=== PATIENT | male | born 1940 | race Caucasian/White ===

== ENCOUNTER 2017-03-14 06:09 | Day surgery (SDC) | payer MEDICARE, BC ==
[~2017-03-14 06:09] MED LIST: Buffered Lidocaine 0.9% SYRIN* 5 ML/SYR SYRINGE INTRADERM ONE; Buffered Lidocaine 0.9% SYRIN* 5 ML/SYR SYRINGE ONE; Dexamethasone IV* 4 MG/ML 1 ML (4 MG) IV SLOW PU ONE; Dexamethasone IV* 4 MG/ML 1 ML (4 MG) ONE; Famotidine IV* 10 MG/ML 2 ML (20 mg) IV ONE; Famotidine IV* 10 MG/ML 2 ML (20 mg) ONE; ceFAZolin 2 GM PREMIX(*) 2 GM/50 ML BAG IVPB ONE
[2017-03-14] MEDS ORDERED: Methylene Blue 0.5 %* 50 MG/10 ML AMP IV ONE (07:15)
[2017-03-14] MEDS ORDERED: Mineral Oil Sterile, TOPICAL* 25 ML BTL ONE (07:16)
[2017-03-14] MEDS ORDERED: Bupivacaine 0.25% EPI 200,000* 30 ML SDV ONE (07:16)
[2017-03-14] MEDS ORDERED: Lidocaine 1% MPF wEPI 200,000* 30 ML SDV ONE (07:17)
[2017-03-14] MEDS ORDERED: fentaNYL* 50 MCG/ML 2 ML VIAL (100 MCG VIAL) ONE (07:32)
[2017-03-14] MEDS ORDERED: Midazolam* 1 MG/ML 5 ML VIAL (5 MG) ONE (07:32)
[2017-03-14] MEDS ORDERED: Ondansetron INJ* 2 MG/ML VIAL ONE (07:35)
[2017-03-14] MEDS ORDERED: Propofol* 10 MG/ML 20 ML BTL IV PUSH ONE (07:35)
[2017-03-14 10:23] VITALS: BP 138/88
== END 2017-03-14 10:24 | disposition home or self-care (01) ==
LOC: OR 06:09
PROVIDERS: ATTEND Plastic Surgery
PROC: 0HB0XZZ Excision of Scalp Skin, External Approach (ICD-10-PCS; principal; 2017-03-14 07:45)
DX: C44.42 Squamous cell carcinoma of skin of scalp and neck (principal); I10 Essential (primary) hypertension; I48.91 Unspecified atrial fibrillation; Z79.01 Long term (current) use of anticoagulants; Z95.0 Presence of cardiac pacemaker; I25.10 Atherosclerotic heart disease of native coronary artery without angina pectoris; E11.9 Type 2 diabetes mellitus without complications; Z79.84 Long term (current) use of oral hypoglycemic drugs
CPT/HCPCS: 88305; 88329; A9270-GY; J0690; J1100; J2001; J2250; J2405; J2704; J3010

== ENCOUNTER 2019-03-23 10:25 | Inpatient (IN) | payer MEDICARE, BC ==
--- NOTE | 2019-03-23 11:06 | ED ---
Lower Extremity - HPI Summary HPI Summary: This patient is a 78 year old M presenting to ED with a chief complaint of drainage from right lower extremity in the past few days worsening this morning. The drainage is clear and bloody. Patient is accompanied by his daughter who states that he has been confused and hallucinating, which is not how the patient is at baseline. Patient has been going in and out of confusion for a while now, but it has worsened and been persistent this past week. Patient does not usually walk around a lot but he takes care of his chickens. Patient usually sleeps in the morning, but per daughter he was awake early in the morning today. The patient rates the pain 0/10 in severity. Symptoms aggravated by nothing. Symptoms alleviated by nothing. Patient reports coughing that has stopped, erythematous in the lower extremities bilaterally, confusion, hallucinations. Patient denies fever. PMHx of CHF, HTN, DM. PSHx of pacemaker. - History of Current Complaint Chief Complaint: EDExtremityLower Stated Complaint: "SWELLING IN LEGS PER DAUGHTER" Time Seen by Provider: 03/23/19 10:56 Hx Obtained From: Patient, Family/Stave And Bolt Equalizer - Daughter Onset/Duration: Worse Since - Beginning a few days ago, worsening since Severity Initially: Mild Severity Currently: Moderate Pain Intensity: 0 Pain Scale Used: 0-10 Numeric Timing: Lasting Days Location: Other - Bilateral lower extremities Associated Signs And Symptoms: Positive: Redness, Other - Drainage, confusion, hallucations, cough. Negative: Fever Aggravating Factor(s): Nothing Alleviating Factor(s): Nothing - Allergies/Home Medications Allergies/Adverse Reactions: Allergies Allergy/AdvReac Type Severity Reaction Status Date / Time No Known Allergies Allergy Verified 03/14/17 06:40 PMH/Surg Hx/FS Hx/Imm Hx Previously Healthy: No Endocrine/Hematology History: Reports: Hx Diabetes Cardiovascular History: Reports: Hx Congestive Heart Failure, Hx Hypertension, Hx Pacemaker/ICD - [facility] - NO MRIs - NOT MR CONDITIONAL FOR [facility], Other Cardiovascular Problems/Disorders - CHRONIC A-FIB Respiratory History: Reports: Hx Sleep Apnea History: Reports: Hx Kidney Stones Denies: Hx Dialysis, Hx Renal Disease Musculoskeletal History: Reports: Hx Arthritis Sensory History: Reports: Hx Contacts or Glasses Denies: Hx Hearing Aid Opthamlomology History: Reports: Hx Contacts or Glasses Psychiatric History: Denies: Hx Panic Disorder - Surgical History Surgery Procedure, Year, and Place: [facility] - NO MRIs @ [facility] [place] - NOT MR CONDITIONAL. kidney stones,total hip replacements, Hx Anesthesia Reactions: No Infectious Disease History: No Infectious Disease History: Denies: Traveled Outside the [place] in Last 30 Days - Family History Known Family History: Positive: Other - Dementia, hyperglycemia - Social History Alcohol Use: None Hx Substance Use: No Substance Use Type: Reports: None Hx Tobacco Use: No Smoking Status (MU): Never Smoked Tobacco Review of Systems Negative: Fever Positive: Cough Skin: Other - Erythematous and draining ulcers on bilateral lower extremities Neurological: Other - Confusion, hallucinations All Other Systems Reviewed And Are Negative: Yes Physical Exam - Summary Physical Exam Summary: Appearance: Well appearing, no pain distress Skin: bilaterally pitting edema in lower extremities, multiple ulcers with discharge and erythematous bilateral LE Head/face: normal Eyes: EOMI, SALUD ENT: normal Neck: supple, non-tender Respiratory: CTA, breath sounds present Cardiovascular: RRR, pulses symmetrical Abdomen: non-tender, soft Musculoskeletal: normal, strength/ROM intact Neuro: alert and confused GCS: 15 Triage Information Reviewed: Yes Vital Signs On Initial Exam: Initial Vitals Temp Pulse Resp BP Pulse Ox 98.9 F 74 18 84/60 92 03/23/19 10:45 03/23/19 10:45 03/23/19 10:45 03/23/19 10:45 03/23/19 10:45 Vital Signs Reviewed: Yes Diagnostics - Vital Signs Vital Signs Temp Pulse Resp BP Pulse Ox 03/23/19 10:45 98.9 F 74 18 84/60 92 - Laboratory Result Diagrams: 03/23/19 11:35 03/23/19 11:35 Lab Statement: Any lab studies that have been ordered have been reviewed, and results considered in the medical decision making process. - Radiology CXR Radiology Interpretation Completed By: Radiologist Summary of Radiographic Findings: CARDIOMEGALY. PACEMAKER LEADS IN PLACE. NO PNEUMONIA. Dr. Henderson has reviewed this radiology report. - CT Brain CT Interpretation Completed By: Radiologist Summary of CT Findings: No intracranial mass or hemorrhage is noted. Dr. Henderson has reviewed this radiology report. - EKG 1123 Cardiac Rate: NL - 70 BPM Summary of EKG Findings: Paced rhythm at 70 BPM, no acute changes. Lower Extremity Course/Dx - Course Course Of Treatment: This patient is a 78 year old M presenting to ED with a chief complaint of drainage from right lower extremity in the past few days worsening this morning. In the ED course patient received fluids, Vancomycin, and Zosyn. Blood work obtained. EKG revealed paced rhythm at 70 BPM, no acute changes. CXR revealed CARDIOMEGALY. PACEMAKER LEADS IN PLACE. NO PNEUMONIA. Brain CT revealed: No intracranial mass or hemorrhage is noted. Discussed patient case with Dr. lOivares hospitalist, who accepted the patient for admission to [facility] [place]. Patient will be admitted with dx of sepsis and cellulitis. Patient understands and agrees with this plan. - Diagnoses Differential Diagnosis/HQI/PQRI: Positive: Cellulitis, DVT, Infection, Other - sepsis Provider Diagnoses: Sepsis, Cellulitis, Hypotension - Physician Notifications Discussed Care Of Patient With: Bear Olivares Time Discussed With Above Provider: 12:56 Instructed by Provider To: Admit As Inpatient - Discussed patient case with katrina Morenoist, who accepted the patient for admission to [facility] [place]. - Critical Care Time Critical Care Time: 30-74 min - 30 minutes Discharge - Sign-Out/Discharge Documenting (check all that apply): Patient Departure - Admit Patient Received Moderate/Deep Sedation with Procedure: No - Discharge Plan Condition: Fair Disposition: ADMITTED TO [facility] Referrals: Can Cartagena MD [Primary Care Provider] - - Billing Disposition and Condition Condition: FAIR Disposition: Admitted to [facility] - Attestation Statements Document Initiated by Vincentibe: Yes Documenting Scribe: Caleb Rivera Provider For Whom Moriah is Documenting (Include Credential): José Manuel Henderson MD Scribe Attestation: Caleb Busch, scribed for José Manuel Henderson MD on 03/23/19 at 1404. Scribe Documentation Reviewed: Yes Provider Attestation: The documentation as recorded by the Caleb bills accurately reflects the service I personally performed and the decisions made by , José Manuel Henderson MD Status of Scribe Document: Viewed
[2019-03-23] MEDS ORDERED: NS 0.9% 1000 ML** 1,000 ML IV.FLUID IV ONE (11:09)
[2019-03-23] MEDS ORDERED: Piperacillin/Tazobac ADVAN(*) 3.375 GM in NS 0.9% 100 ML* 100 ML IVPB ONE (11:09)
[2019-03-23] MEDS ORDERED: Vancomycin(*) 2,000 MG in NS 0.9% 250 ML* 250 ML IVPB ONE (11:12)
[2019-03-23] MEDS ORDERED: Vancomycin(*) 2,000 MG in NS 0.9% 500 ML* 500 ML IVPB ONE (12:00)
[2019-03-23 12:04] LABS: Hematocrit 45 % (42-52); Hemoglobin 14.8 g/dL (14.0-18.0); Mean Corpuscular HGB Conc 33 g/dL (31-36); Mean Corpuscular Hemoglobin 32 pg (27-31); Mean Corpuscular Volume 98 fL (80-94); Red Blood Count 4.61 10^6 /uL (4.18-5.48); Red Cell Distribution Width 15 % (10-15); White Blood Count 10.6 10^3/uL (3.5-10.8)
[2019-03-23 12:19] LABS: Activated Partial Thrombo Time 80.9 seconds (26.0-38.0); INR 2.83 (0.82-1.09)
[2019-03-23 12:20] LABS: Albumin 3.1 g/dL (3.2-5.2); Albumin/Globulin Ratio 1.2 (1-3); BUN/Creatinine Ratio 22.2 (8-20); C Reactive Protein 90.65 mg/L (<8.01); EGFR African American 44.5 (>60); EGFR Non-African American 36.8 (>60); Globulin 2.5 g/dL (2-4); Total Bilirubin 1.9 mg/dL (0.2-1.0); Total Protein 5.6 g/dL (6.4-8.9)
[2019-03-23 12:21] LABS: Troponin I 0.02 ng/mL (<0.04)
[2019-03-23 12:31] LABS: ABS Lymphocytes 0.3 10^3/ul (1.0-4.8); ABS Neutrophils 9.3 10^3/ul (1.5-7.7); Eosinophil % 0.2 %; Lymphocyte % 3.1 %; Mean Platelet Volume 9.8 fL (7.4-10.4); Platelet Count 83 10^3/uL (150-450)
[2019-03-23] MEDS ORDERED: Acetaminophen TAB* 325 MG PO PRN (14:04)
[2019-03-23] MEDS ORDERED: Vancomycin per Pharmacy* NOTE FOLLOW UP PRN (14:46)
[2019-03-23] MEDS ORDERED: Vancomycin(*) 0 MG in NS 0.9% 250 ML* 250 ML IVPB SCH (15:00)
[2019-03-23] MEDS: metroNIDAZOLE IV 500 MG/100ML* 500 MG/100 ML BAG IVPB SCH (15:39)
[2019-03-23 15:41] LABS: Urine Appearance Cloudy; Urine Bacteria Absent (Absent); Urine Bilirubin Negative (Negative); Urine Blood Negative (Negative); Urine Color Yellow; Urine Glucose Negative (Negative); Urine Ketones Negative (Negative); Urine Nitrite Negative (Negative); Urine Protein 1+(30 mg/dL) (Negative); Urine Red Blood Cell Trace(0-2/hpf) (Absent); Urine Specific Gravity 1.013 (1.010-1.030); Urine Squamous Epithelial Cell Present (Absent); Urine Urobilinogen Negative (Negative); Urine White Blood Cell Trace(0-5/hpf) (Absent)
[2019-03-23] MEDS ORDERED: Dextrose 50% Syringe 50 ML* 25 GM/50 ML SYRINGE IV PUSH PRN (15:53)
[2019-03-23] MEDS: Cefepime 1 GM in Dextrose(*) 1 GM/50 ML BAG IV SCH (16:46)
[2019-03-23] MEDS: Insulin LISPRO* 1 UNITS UNIT SUBCUT SCH (17:15)
[2019-03-23] MEDS ORDERED: Atorvastatin* 20 MG TAB PO SCH (18:00)
--- NOTE | 2019-03-23 19:35 | HP ---
CC: Dr. Cartagena.* HISTORY AND PHYSICAL: DATE OF ADMISSION: 03/23/19 PROVIDER: Lela Chow NP. PRIMARY CARE PROVIDER: Dr. Cartagena. ATTENDING PHYSICIAN WHILE IN THE HOSPITAL: Dr. Bear Olivares * (dictated by Lela Chow NP) CHIEF COMPLAINT: Lower extremity swelling and drainage bilaterally. HISTORY OF PRESENT ILLNESS: Mr. Jane is a 78-year-old male with a past medical history of obstructive sleep apnea wearing CPAP, atrial fibrillation, history of cardiomyopathy, history of Vtach, type 2 diabetes, hyperlipidemia, obesity, hypertension, BPH, history of coronary artery disease. The patient reports that he has had increased weakness in his legs for the past 2 to 3 weeks. He reports that he has had some lower extremity weeping and drainage bilaterally, increased swelling for the past month and daughter reports that the swelling, lower extremity edema, redness and drainage has progressively worsened for the past week. She does report that he had bloody drainage that started yesterday. She also reports that the patient has had increased confusion and that the patient at baseline has confusion and has been confused for approximately 1 year and started with some hallucinations approximately 2 weeks ago, but has been worse times the past 4 days. The patient reports that he has had increased swelling in his abdomen x2 months with weight gain. He reports that his normal weight is 310, but is unsure what his weight is at this time. Daughter reports that he has had changes in his sleep pattern over the past 4 days and usually sleeps most of the day and sleeps in the morning, but this morning he was awake at 5 o'clock and was outside. The daughter reports no changes in his speech, no changes in his gait status at home. She does report that he was recently seen by a neurologist 2 to 3 weeks ago and evaluated for his increased confusion. At that time, they ordered a CT, which was scheduled for 03/25/19. No fevers or unintended weight loss. The patient denies any chest pain. He does report increased edema to bilateral lower extremities and does report occasional cough that has improved over the past 2 to 3 weeks. Denies any hemoptysis. He does report some shortness of breath. Denies any nausea, vomiting, diarrhea or abdominal pain. Last BM was last night. Denies any gross hematuria or dysuria. He does report generalized weakness, bilateral legs. Denies any visual complaints, dysphagia, arthralgias, myalgias. He does have weeping ulcerations noted to his right lower leg and the top of his right foot as well as his left lower leg with redness extending from his ankle on the medial aspect of his leg to his thigh with increased redness to bilateral lower extremities. No anxiety was reported. There was reported increased confusion and hallucinations at home. Due to his increased confusion and lower extremity redness, swelling and drainage, we were asked to see and evaluate him for admission. PAST MEDICAL HISTORY: Significant for: 1. Obstructive sleep apnea, wear CPAP at night. 2. Atrial fibrillation. 3. History of cardiomyopathy with ICD pacemaker. 4. Hypertension. 5. History of Vtach. 6. Type 2 diabetes. 7. Hyperlipidemia. 8. Obesity. 9. BPH. 10. History of coronary artery disease with history of a AL. 11. History of squamous cell carcinoma - skin PAST SURGICAL HISTORY: 1. He had bilateral hip replacements. 2. [facility] ICD pacemaker placement. 3. Surgery for kidney stones. HOME MEDICATIONS: (verified with patient supplied medication list) 1. Pradaxa 150 mg 1 tablet b.i.d. 2. Dutasteride 0.5 mg 1 tab p.o. daily. 3. Metoprolol 100 mg p.o. b.i.d. 4. Januvia 100 mg p.o. daily. 5. Amiodarone 200 mg half tablet to 1 tab p.o. daily. 6. Lisinopril 5 mg p.o. daily. 7. Allopurinol 1 mg p.o. daily. 8. Atorvastatin 20 mg p.o. daily. 9. Tamsulosin 0.4 mg 1 tab p.o. daily. 10. Furosemide 20 mg 1 tab p.o. daily. (Daughter is going to clarify dose as dose in the computer reads at 40mg). ALLERGIES: No known drug allergies. FAMILY HISTORY: Mother with a history of heart disease. Brother with a AL in his 50s, mother with a history of diabetes. No reported history of cancer. SOCIAL HISTORY: The patient denies any tobacco, alcohol or illicit drug use. 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 He is . He lives with his daughter. He is a full code. Surrogate decision maker in the event he is unable to make his own decisions is his daughter, Joselyn. REVIEW OF SYSTEMS: A 14-point review of systems was completed. All pertinent positives were mentioned in the HPI. PHYSICAL EXAMINATION GENERAL: At this time, Mr. Jane is a 78-year-old male. He is drowsy resting on the stretcher in the emergency room. He does not appear to be in any acute distress. He is alert and oriented x3. HEENT: Head with multiple scabbed areas noted to his face and top of his head. Eyes: EOMs are intact. Sclerae anicteric and not pale. Oral mucosa appeared to be moist. NECK: Supple. LUNGS: Diminished throughout bilaterally with crackles in the right base. CARDIAC: S1, S2. Irregular rate and rhythm. No rubs or gallops. ABDOMEN: Obese, rounded, soft. Bowel sounds are present x4. MUSCULOSKELETAL: He is able to move all 4 extremities. There is no clubbing or cyanosis. He does have redness discoloration noted to bilateral lower extremities with open ulceration noted to the top of his right foot and medial aspect of the right ankle and lower leg with open ulcerations that are weeping serosanguineous drainage. He does have some serosanguineous drainage noted from his left lower extremity with surrounding erythema. He does have erythema noted to the medial aspect of his right leg extending up to his thigh. NEUROLOGIC: He is awake but drowsy. He is alert and oriented x3. There is no gross focal deficits. Hand auto claims adjuster are equal. Smile is equal. Tongue is midline. There is no facial asymmetry. Finger to nose is intact. Push pull is intact. NO pronator drift. Sensation is intact to all four extremities. SKIN: Please see extremities. He does have open ulcerations noted to the medial aspect of bilateral lower legs and the top of his right foot. Wound cultures have been sent. DIAGNOSTIC STUDIES/LAB DATA: WBCs are 10.6, RBCs are 4.61, hemoglobin 14.8, hematocrit is 45, platelet count is 83,000. INR is 2.83. APTT is 80.9. Sodium 139, potassium 4.0, chloride 103, carbon dioxide is 33, anion gap is 3, BUN is 40, creatinine 1.80, glucose is 190, lactic acid is 2.3. Total bilirubin is 1.90. AST is 23, ALT is 16, alkaline phosphatase is 63. Troponin 0.02, C-reactive protein is 19.65, BNP is 563. Urine: Color is yellow. Appearance is cloudy. pH is 5.0, specific gravity is 1.013, urine protein is 1 + ketones, blood, nitrites, bilirubin, urobilinogen and leukocyte esterase are all negative. Urine wbc's are trace, rbc's are trace, squamous epithelial cells are present. Bacteria is absent. Hyaline casts are present. Glucose is negative. He had a chest x-ray. Radiologist impression: Cardiomegaly. Pacemaker leads in place. No evidence of pneumonia. He had a CT of the brain. No intracranial mass or hemorrhage is noted. He had a venous Doppler. No evidence of deep vein thrombosis of either lower extremity is present. Left peroneal veins are not visualized. He had an electrocardiogram, which showed ventricular paced complexes with underlying atrial fibrillation at a rate of 70. ASSESSMENT AND PLAN: Mr. Jane is a 78-year-old male with a past medical history significant for obstructive sleep apnea, atrial fibrillation, cardiomyopathy, hypertension, history of ventricular tachycardia, type 2 diabetes, hyperlipidemia, obesity, benign prostatic hypertrophy, history of coronary artery disease with myocardial infarction and history of squamous cell skin cancer to the head, who presented to the emergency room with increased confusion and increased drainage and redness to the lower extremities. He will be admitted inpatient for: 1. Altered mental status: I suspect this altered mental status could be related to toxic metabolic encephalopathy related to sepsis from underlying cellulitis. This patient does appear to have underlying cellulitis. The patient does have baseline confusion for over a year, has been evaluated by Neurology as an outpatient, but no definitive diagnosis. The patient does not have any focal neuro deficits at this time. His speech is clear, but the patient is drowsy. His tongue is midline. Smile is equal. Handgrips are equal. There is no pronator drift. Within the differential could be cerebrovascular accident but this is low given that the patient does not have any neurological findings. CT of the brain did not show any evidence of infarct. We will rule out a cerebrovascular accident. We will get carotid duplex. I would recommend a MRI if his confusion does not improve. We will also get an echocardiogram with bubble study. The patient currently is on Pradaxa. We will continue his Pradaxa and statin as previously prescribed. I will get a hemoglobin A1c and lipid profile in the a.m. 2. Cellulitis. The patient is meeting sepsis criteria for cellulitis. He has an elevated lactic acid at 2.3. He is hypotensive in the emergency room. He may not exhibit tachycardia due to being on rate control agents of amiodarone and metoprolol. The patient does have tachypnea, which will qualify him for sepsis with suspected source lower extremity cellulitis. He did receive 30 cc/ kg bolus in the emergency room. His blood pressure does improve to the low 100s. I am going to hold his lisinopril. I will cut his metoprolol in half to 50 mg p.o. b.i.d. once starting in the a.m. I am going to hold his Lasix until his blood pressure improves. We will place him on Flagyl, vancomycin and cefepime. His wound cultures are currently pending. Blood culture is currently pending. 3. Anasarca, lower extremity edema. He does have 2+-3+ pitting edema noted from his abdomen to his ankles bilaterally. I suspect this is increasing his drainage to his lower extremities. At this time, I will hold off on Lasix as the patient does meet criteria for sepsis and is hypotensive, but it does appear that he would benefit from Lasix once his sepsis is resolved. i am going to hold off on further fluid at this time as the patient has received almost 5 liters of fluid in the ER. 4. Elevated lactic acid. I suspect this is related to his underlying cellulitis of bilateral lower extremities, right leg worse than left. We will repeat a lactic acid at 3:30 today and continue fluid replacement based on that. The patient does appear to have some fluid overload with +2 to +3 pitting edema from his abdomen to his ankle. I am going to hold on further fluid replacement at this time. 5. Thrombocytopenia. The patient does take Pradaxa for underlying atrial fibrillation. His platelet count is 83,000 which is lower than his normal baseline. I will repeat a CBC in the a.m. We will monitor him for signs of bleeding. I will continue his Pradaxa at this time and monitor for any acute signs of bleeding. If his platelet count continues to drop may need to consider hold Pradaxa. Drop in platelets can also be seen in with infection. 6. Hypertension. He is currently hypotensive, suspect this could be related to his underlying infection in combination of his current blood pressure medications. I am going to cut his metoprolol in half to 50 mg p.o. BID. I am going to hold his lisinopril and Lasix at this time. 7. Atrial fibrillation. The patient does have an ICD pacer. We will continue his amiodarone 100 mg p.o. daily starting tomorrow and cut metoprolol in half to 50 mg p.o. BID. We will continue his Pradaxa. 8. Hyperlipidemia. He will continue on atorvastatin 20 mg p.o. daily. 9. Benign prostatic hypertrophy. The patient will continue Flomax 0.4 mg 1 tablet p.o. daily. 10. Type 2 diabetes. I will hold his Januvia. I will place him on lispro sliding scale with fingersticks a.c. and h.s. and sliding scale with a.c. 11. Elevated BUN/ Creatinine. This is elevated slightly above baseline, will hold lisinopril and avoid nephrotoxic medications. Will repeat BMP in the AM. IF BUN and creatinine continue to elevated may need to consider renal ultrasound. 12. Code status is full code. 13. DVT prophylaxis: We will continue him on Pradaxa. 14. FEN: He can have a heart healthy diet. TIME SPENT: Time spent on this admission was 60 minutes, greater than half that time was spent at the bedside reviewing events leading thus far to his hospitalization, performing physical exam, and reviewing my plan of care. I have discussed this with my attending, Dr. Bear Olivares; he is in agreement with my plan. LELA MACHO, HR OPERATIONS ADVISOR [id number]/CPS #: [id number] [facility]
[2019-03-23] MEDS: CMCS Dabigatran CAP(NF) 150 MG CAP PO SCH (21:19)
[2019-03-24] MEDS: metroNIDAZOLE IV 500 MG/100ML* 500 MG/100 ML BAG IVPB SCH ×2 (02:22→14:29)
[2019-03-24] MEDS ORDERED: Haloperidol INJ IV/IM* 5 MG/ML AMP ONE (02:56)
[2019-03-24] MEDS ORDERED: Haloperidol INJ IV/IM* 5 MG/ML AMP IV SLOW PU ONE (02:57)
[2019-03-24] MEDS: Cefepime 1 GM in Dextrose(*) 1 GM/50 ML BAG IV SCH ×2 (05:35→17:00)
[2019-03-24] MEDS ORDERED: Vancomycin Random Level* NOTE FOLLOW UP ONE (06:00)
[2019-03-24 07:10] LABS: ABS Lymphocytes 0.5 10^3/ul (1.0-4.8); ABS Monocytes 1.2 10^3/ul (0-0.8); ABS Neutrophils 10.4 10^3/ul (1.5-7.7); Eosinophil % 0.3 %; Hematocrit 44 % (42-52); Hemoglobin 14.9 g/dL (14.0-18.0); Lymphocyte % 4.4 %; Mean Corpuscular HGB Conc 34 g/dL (31-36); Mean Corpuscular Hemoglobin 33 pg (27-31); Mean Corpuscular Volume 98 fL (80-94); Platelet Count 72 10^3/uL (150-450); Red Blood Count 4.48 10^6 /uL (4.18-5.48); Red Cell Distribution Width 16 % (10-15); White Blood Count 12.1 10^3/uL (3.5-10.8)
[2019-03-24 07:30] LABS: Calcium 8.9 mg/dL (8.6-10.3); EGFR African American 48.5 (>60); EGFR Non-African American 40.1 (>60); HDL Cholesterol 33.2 mg/dL; Potassium 4.5 mmol/L (3.5-5.0)
[2019-03-24 07:46] LABS: Vancomycin Random 9.6 mcg/mL
[2019-03-24] MEDS ORDERED: Metoprolol Tartrate TAB* 50 mg PO SCH (09:00)
[2019-03-24] MEDS ORDERED: Vancomycin(*) 1,000 MG in NS 0.9% 250 ML* 250 ML IVPB SCH (09:00)
[2019-03-24] MEDS: Insulin LISPRO* 1 UNITS UNIT SUBCUT SCH ×2 (09:14→12:28)
[2019-03-24] MEDS: Finasteride TAB* 5 MG PO SCH (09:15)
[2019-03-24] MEDS: Allopurinol TAB* 100 MG PO SCH (09:15)
[2019-03-24] MEDS: CMCS Dabigatran CAP(NF) 150 MG CAP PO SCH ×2 (09:15→21:38)
[2019-03-24] MEDS: Tamsulosin CAP* 0.4 MG PO SCH (09:15)
--- NOTE | 2019-03-24 09:55 | PN ---
Subjective Date of Service: 03/24/19 Interval History: Pt was intermittently confused throughout the night. This AM as per d/w RN pt was more alert when eating, now drifting off to sleep in mid sentence, mumbling intermittently. Pt thinks he is on his porch. Denies pain, unable to provide any medical history Objective Active Medications: Acetaminophen (Tylenol Tab*) 650 mg PO Q4H PRN PRN Reason: FEVER/PAIN Allopurinol (Zyloprim Tab*) 100 mg PO DAILY [facility] Last Admin: 03/24/19 09:15 Dose: 100 mg Atorvastatin Calcium (Lipitor*) 20 mg PO BEDTIME [facility] Dabigatran (Pradaxa Cap(Nf)) 150 mg PO BID [facility] Last Admin: 03/24/19 09:15 Dose: 150 mg Dextrose (D50w Syringe 50 Ml*) 12.5 gm IV PUSH .FOR FS < 60 - SS PRN PRN Reason: FS < 60 Finasteride (Proscar Tab*) 5 mg PO DAILY [facility]; Protocol Last Admin: 03/24/19 09:15 Dose: 5 mg Cefepime HCl (Maxipime 1 Gm In Dextrose Duplex (*)) 1 gm in 50 mls @ 100 mls/ hr IV Q12H [facility] Last Admin: 03/24/19 05:35 Dose: 100 mls/hr Metronidazole/Sodium Chloride (Flagyl 500 Mg Ivpb*) 500 mg in 100 mls @ 100 mls /hr IVPB Q12H [facility] Last Admin: 03/24/19 02:22 Dose: 100 mls/hr Vancomycin HCl 1,000 mg/ (Sodium Chloride) 250 mls @ 166.667 mls/hr IVPB Q12H [facility] Insulin Human Lispro (Humalog*) 0 units SUBCUT AC [facility]; Protocol Last Admin: 03/24/19 09:14 Dose: 2 units Metoprolol Tartrate (Lopressor Tab*) 50 mg PO Q12HR [facility] Pharmacy Consult (Vancomycin Per Pharmacy*) 1 note FOLLOW UP . PRN PRN Reason: PER PROTOCOL Pharmacy Profile Note (Vancomycin Trough Check) 1 note FOLLOW UP 829 ONE Stop: 03/25/19 08:31 Tamsulosin HCl (Flomax Cap*) 0.4 mg PO DAILY [facility] Last Admin: 03/24/19 09:15 Dose: 0.4 mg Vital Signs - 8 hr 03/24/19 03/24/19 03/24/19 02:00 02:01 02:21 Temperature Pulse Rate 68 65 64 Respiratory 0 0 26 Rate Blood Pressure 76/52 78/51 98/51 (mmHg) O2 Sat by Pulse 91 90 91 Oximetry 03/24/19 03/24/19 03/24/19 02:30 03:00 03:02 Temperature Pulse Rate 77 75 73 Respiratory 20 24 27 Rate Blood Pressure 106/65 98/54 (mmHg) O2 Sat by Pulse 89 99 97 Oximetry 03/24/19 03/24/19 03/24/19 03:10 03:24 03:30 Temperature 97.0 F Pulse Rate 70 75 Respiratory 20 20 Rate Blood Pressure 110/67 97/54 (mmHg) O2 Sat by Pulse 93 93 Oximetry 03/24/19 03/24/19 03/24/19 04:00 04:02 04:30 Temperature Pulse Rate 65 73 Respiratory 37 23 16 Rate Blood Pressure 87/67 97/60 (mmHg) O2 Sat by Pulse 96 93 Oximetry 03/24/19 03/24/19 03/24/19 05:00 05:30 06:00 Temperature Pulse Rate 73 74 Respiratory 30 21 20 Rate Blood Pressure 97/57 91/58 111/69 (mmHg) O2 Sat by Pulse 95 91 Oximetry 03/24/19 03/24/19 03/24/19 06:30 06:43 07:00 Temperature Pulse Rate Respiratory 14 7 6 Rate Blood Pressure 111/64 102/61 (mmHg) O2 Sat by Pulse Oximetry 03/24/19 03/24/19 03/24/19 07:24 07:30 07:33 Temperature 97.2 F Pulse Rate 73 71 Respiratory 22 25 Rate Blood Pressure 89/52 (mmHg) O2 Sat by Pulse 97 97 Oximetry 03/24/19 08:00 Temperature Pulse Rate 73 Respiratory 27 Rate Blood Pressure (mmHg) O2 Sat by Pulse 87 Oximetry Oxygen Devices in Use Now: Nasal Cannula Appearance: 78 yo M in [facility], AAOx1 Eyes: No Scleral Icterus, PERRLA Ears/Nose/Mouth/Throat: NL Teeth, Lips, Gums, Mucous Membranes Moist Neck: NL Appearance and Movements; NL JVP, Trachea Midline Respiratory: - - crackles at b/l lowerto mid lungs Cardiovascular: NL Sounds; No Murmurs; No JVD, RRR Abdominal: - - distended, soft, NT BS+ Lymphatic: No Cervical Adenopathy Extremities: - - b/l diffuse pitting edema. R leg with erythema and elements of chronic appearing venous stasis disoloration with acute cellulitic appearing area blow the knee, also chronic appearing erythema medial thigh, R lateral aspect-distal leg-ecchymosis at 20x10 cm Skin: No Nodules or Sclerosis, - - see above Neurological: - - generalized weakness, no focal deficit Result Diagrams: 03/24/19 06:34 03/24/19 06:34 Microbiology and Other Data: Microbiology 03/23/19 14:30 Nasal Screen MRSA (PCR) - Final Nasal Mrsa Not Detected 03/23/19 11:10 Skin and Soft Tissue MRSA/MSSA (PCR - Final Leg Right Mrsa Negative S.aureus Positive Gram Stain - Final Assess/Plan/Problems-Billing Assessment: 78 yo M with mild dementia, RYAN (on CPAP), PAF (on Pradaxa), DM2, CKD stage 3, ICD (h/o V. tach and cardiomyopathy) presents with sepsis due to LE 's cellulitis - Patient Problems (1) Sepsis Comment: severe sepsis,with oscylating SBP, occasionally SBP at 89, but no other signs of hypoperfusion and lactic acid WNL after IVF boluses. No need of pressor . cont Cefepime/Flagyl for LE's cellultitis. Wound cx is MRSA neg and will d/c Vanc (2) Atrial fibrillation Comment: h/o PAF on Pradaxa, currently in NSR will cont lopressor with hold parameters cont amiodarone due to pt's thrombocytopenia and amidoarone use as well as increased creat will lower Pradaxa does to 75 mg BID (3) Encephalopathy Comment: Acute due to sepsis, on chronic mild dementia (4) CKD (chronic kidney disease) stage 3, GFR 30-59 ml/min Comment: creat with mild worsening this hospital stay due to sepsis (5) Thrombocytopenia Comment: likely due to sepsis no signis of bleeding cont Pradaxa (lower the dose due to CKD with worsening, amiodarone use and thrombocytopenia), no heparin (6) CHF (congestive heart failure) Comment: chornic with cardiomypathy and ICD, unknown EF Echo pending will restart home Lasix tomorrow (7) RYAN (obstructive sleep apnea) Comment: current mentation may be worse due to CO2 retention will get ABG, may need BIPAP again (8) DVT prophylaxis Comment: cont Pradaxa Status and Disposition: inpatient
[2019-03-24] MEDS ORDERED: Perflutren Lipid Microsphere* 3 ML VIAL ONE (10:03)
--- NOTE | 2019-03-24 13:32 | ECHO ---
*[facility]* [place] [address] Fax #: [phone] Transthoracic Echocardiogram Patient: Jason Jane : 1940 Study Date: 03/24/2019 Age: 78 Gender: M HR: 107 bpm Height: 68 in /172.7 cm BSA: 2.46 m^2 Weight: 309.4 lb /140.6 kg BMI: 47.1 kg/m^2 *Warehouse Receiver: * Traci Pritchett [facility] *Referring Physician: * Lela Chow *Reading Physician: * Bernard Gandhi MD Indications: Edema. History: Atrial fibrillation. PMH: Cardiomyopathy. Risk factors: Current tobacco use. Diabetes mellitus. Obese. Dyslipidemia. Labs, prior tests, procedures, and surgery: ICD system implantation. Conclusions Summary: 1. Procedure narrative: Image quality was poor. Intravenous Definity , 3 mls was administered but did not improve quality of imaging. A bubble study was performed. But was non- diagnostic due to poor imaging and lack of adequate bubbles. 2. Left ventricle: The cavity size is at the upper limits of normal. Wall thickness is mildly increased. Systolic function is normal. The estimated ejection fraction is 50-55%. TDS and the endocardium is not well visualized. 3. Right ventricle: Pacer wire noted in the right ventricle. 4. Left atrium: The left atrium appears dilated. 5. Right atrium: The right atrium appears dilated. 6. Tricuspid valve: There is trace regurgitation. 7. C/t 06/14/2009, there is significant left ventricle ejection fraction improvement now from 20% then. Study data: Transthoracic echocardiogram. Procedure: Transthoracic echocardiography was performed. Image quality was poor. Intravenous Definity , 3 mls was administered but did not improve quality of imaging. A bubble study was performed. But was non- diagnostic due to poor imaging and lack of adequate bubbles. Image enhancement administered by MINNA Buckley (patient's nurse). Complete 2D, spectral Doppler, and color flow Doppler. Location: ICU Patient status: Inpatient. Patient room number: 2. Rhythm: Atrial fibrillation. Findings Left ventricle: The cavity size is at the upper limits of normal. Wall thickness is mildly increased. Systolic function is normal. The estimated ejection fraction is 50-55%. Wall motion appears normal; there are no obvious regional wall motion abnormalities. TDS and the endocardium is not well visualized. Left ventricular diastolic function parameters are indeterminate. Right ventricle: The cavity size is moderately dilated. Pacer wire noted in the right ventricle. Systolic function is normal. Ventricular septum: There is septal flattening of the interventricular septum consistent with RV volume or pressure overload. Left atrium: The left atrium appears dilated. Right atrium: The right atrium appears dilated. Pacer wire noted in right atrium. Mitral valve: The leaflets are mildly thickened. There is no evidence of stenosis. There is no significant regurgitation. Aortic valve: Not well visualized. The leaflets do not appear thickened. There is no significant regurgitation. Tricuspid valve: Not well visualized. The leaflets do not appear thickened. There is trace regurgitation. Pulmonic valve: Not well visualized. There is no significant regurgitation. Aorta: Aortic root: The aortic root is appears normal. Ascending aorta: The ascending aorta is appears normal. Aortic arch: The aortic arch is poorly visualized. Pericardium: A trivial pericardial effusion is identified. Pulmonary arteries: Not well visualized. Systolic pressure is within the normal range but is likely underestimated. Systemic veins: Inferior vena cava: Not well visualized. Measurements Left ventricle Value Ref Mitral valve Value Ref JANELLE, LAX 5.5 cm 4.2 - 5.8 Peak E 0.6 m/sec ----- ESD, LAX (H) 4.7 cm 2.5 - 4.0 Peak A 0.03 m/sec ----- FS, LAX (L) 14 % 25 - 43 Decel time 112 ms ----- PW, ED, LAX (H) 1.2 cm 0.6 - 1.0 Peak E/A ratio 24 ----- EF (L) 30 % 52 - 72 E', med karly, TDI 9.6 cm/sec >=7.0 Pulmonic valve Value Ref E/e', med karly, TDI 6 --------- Peak v, S 0.89 m/sec ----- Peak grad, S 3.0 mm Hg ----- LVOT Value Ref Peak roma, S 0.76 m/sec --------- Tricuspid valve Value Ref TR peak v 2.1 m/sec <=2.8 Ventricular septum Value Ref Peak RV-RA grad, S 18 mm Hg ----- IVS, ED 1.0 cm 0.6 - 1.0 Aortic root Value Ref Right ventricle Value Ref Root diam 3.2 cm <4.5 JANELLE, LAX 5.2 cm --------- Pressure, S 33 mm Hg --------- Ascending aorta Value Ref AAo AP diam, S 2.5 cm ----- Right atrium Value Ref Estimated RAP 15 mm Hg --------- Pulmonary artery Value Ref Pressure, S 30.0 mm Hg ----- Aortic valve Value Ref Karly diam, ED 2.3 cm --------- Peak v, S 1 m/sec --------- Peak grad, S 4.0 mm Hg --------- Legend: (L) and (H) doe values outside specified reference range. Prepared and electronically signed by Bernard Gandhi MD 03/24/2019 13:31
[2019-03-24] MEDS ORDERED: Lorazepam PYXIS KEY PRN (13:37)
--- NOTE | 2019-03-24 13:47 | PN ---
Progress Note - Progress Note Date of Service: 03/24/19 Note: Pt's ABG showed rep acidosis and did not improve, but got slightly worse after BIPAP x 1.5 hr Pt also has gotten increasingly more lethargic/obtunded. discussed the above with Erica Sumeet-pt's stepdaughter and surrogate. Maryellen mentioned how pt used to tend to his chickens up to a week ago and that he would not wish to "end up in a penitentiary". She also was aware of his problems with memory and confusion that had progressed in the past several weeks. We discussed options of ventilator and sedation while on it and likely NH placement if pt survives his ICU stay. Erica mentioned that pt would not want to live in a NH and requested for pt to be not intubated. DNR was signed. Comfort care was requested and initiated
[2019-03-24] MEDS: Amiodarone TAB* 200 MG PO SCH (14:12)
[2019-03-24] MEDS: Morphine ORAL CONCENTRATE* 5 MG/0.25 ML ORAL.SYRIN SL PRN (14:13)
[2019-03-24] MEDS ORDERED: Atorvastatin* 20 MG TAB PO SCH (21:00)
[2019-03-24] MEDS: Metoprolol Tartrate TAB* 50 mg PO SCH (21:38)
[2019-03-25] MEDS: LORazepam INJ* 2 MG/ML 1 ML VIAL IV PUSH PRN ×5 (01:31→18:01)
[2019-03-25] MEDS: metroNIDAZOLE IV 500 MG/100ML* 500 MG/100 ML BAG IVPB SCH ×2 (03:18→14:37)
[2019-03-25] MEDS: Cefepime 1 GM in Dextrose(*) 1 GM/50 ML BAG IV SCH ×2 (04:33→16:24)
[2019-03-25] MEDS: Morphine ORAL CONCENTRATE* 5 MG/0.25 ML ORAL.SYRIN SL PRN ×5 (07:06→18:00)
[2019-03-25] MEDS ORDERED: Vancomycin Trough Check NOTE FOLLOW UP ONE (08:30)
[2019-03-25 08:50] VITALS: BP 79/45
[2019-03-25] MEDS: Amiodarone TAB* 200 MG PO SCH (08:50)
[2019-03-25] MEDS: Metoprolol Tartrate TAB* 50 mg PO SCH (08:50)
[2019-03-25] MEDS: CMCS Dabigatran CAP(NF) 150 MG CAP PO SCH (08:50)
[2019-03-25] MEDS: Allopurinol TAB* 100 MG PO SCH (08:50)
[2019-03-25] MEDS: Finasteride TAB* 5 MG PO SCH (08:50)
[2019-03-25] MEDS: Tamsulosin CAP* 0.4 MG PO SCH (08:51)
[2019-03-25] MEDS ORDERED: Furosemide TAB* 40 MG PO SCH (09:00)
[2019-03-25] MEDS: Atropine 1% (ORAL/SL)* 15 ML BTL SL PRN ×3 (10:58→16:30)
--- NOTE | 2019-03-25 14:08 | PN ---
Subjective Date of Service: 03/25/19 Interval History: Pt is nonverbal. As d/w RN very congested and trying to cough up phlegm. Eyes closed and not opening them to command . Withdraws to pain Objective Active Medications: Acetaminophen (Tylenol Tab*) 650 mg PO Q4H PRN PRN Reason: FEVER/PAIN Allopurinol (Zyloprim Tab*) 100 mg PO DAILY [facility] Last Admin: 03/25/19 08:50 Dose: Not Given Amiodarone HCl (Cordarone Tab*) 100 mg PO DAILY [facility] Last Admin: 03/25/19 08:50 Dose: Not Given Atropine Sulfate (Atropine 1% (Oral/Sl)*) 2 drop SL Q2H PRN PRN Reason: DISCOMFORT Last Admin: 03/25/19 13:02 Dose: 2 drop Dabigatran (Pradaxa Cap(Nf)) 150 mg PO BID [facility] Last Admin: 03/25/19 08:50 Dose: Not Given Finasteride (Proscar Tab*) 5 mg PO DAILY [facility]; Protocol Last Admin: 03/25/19 08:50 Dose: Not Given Cefepime HCl (Maxipime 1 Gm In Dextrose Duplex (*)) 1 gm in 50 mls @ 100 mls/ hr IV Q12H [facility] Last Admin: 03/25/19 04:33 Dose: 100 mls/hr Metronidazole/Sodium Chloride (Flagyl 500 Mg Ivpb*) 500 mg in 100 mls @ 100 mls /hr IVPB Q12H [facility] Last Admin: 03/25/19 03:18 Dose: 100 mls/hr Lorazepam (Ativan Inj*) 1 mg IV PUSH Q2H PRN PRN Reason: ANXIETY Last Admin: 03/25/19 13:17 Dose: 1 mg Metoprolol Tartrate (Lopressor Tab*) 50 mg PO Q12HR [facility] Last Admin: 03/25/19 08:50 Dose: Not Given Miscellaneous (Ativan Pyxis Emanuel) 1 ea N/A .ATIVAN IV EMANUEL PRN PRN Reason: PYXIS EMANUEL Morphine Sulfate (Morphine Oral Concentrate*) 10 mg SL Q2H PRN PRN Reason: PAIN Last Admin: 03/25/19 13:02 Dose: 10 mg Morphine Sulfate (Morphine Inj (Syringe))*) 2 mg IV Q1H PRN PRN Reason: PAIN Tamsulosin HCl (Flomax Cap*) 0.4 mg PO DAILY [facility] Last Admin: 03/25/19 08:51 Dose: Not Given Vital Signs - 8 hr 03/25/19 03/25/19 03/25/19 07:03 07:06 08:00 Temperature Pulse Rate Respiratory 30 30 30 Rate Blood Pressure (mmHg) O2 Sat by Pulse Oximetry 03/25/19 03/25/19 03/25/19 08:30 08:38 09:13 Temperature 97.9 F Pulse Rate 76 Respiratory 26 26 26 Rate Blood Pressure 79/45 (mmHg) O2 Sat by Pulse 95 Oximetry 03/25/19 03/25/19 03/25/19 10:57 10:58 11:26 Temperature Pulse Rate Respiratory 32 32 28 Rate Blood Pressure (mmHg) O2 Sat by Pulse Oximetry 03/25/19 03/25/19 03/25/19 12:13 13:02 13:07 Temperature Pulse Rate Respiratory 24 30 30 Rate Blood Pressure (mmHg) O2 Sat by Pulse Oximetry 03/25/19 13:17 Temperature Pulse Rate Respiratory 28 Rate Blood Pressure (mmHg) O2 Sat by Pulse Oximetry Oxygen Devices in Use Now: Nasal Cannula Appearance: 78 yo M, nonverbal, minimally responsive Eyes: No Scleral Icterus, PERRLA Ears/Nose/Mouth/Throat: NL Teeth, Lips, Gums, Mucous Membranes Moist Neck: NL Appearance and Movements; NL JVP, Trachea Midline Respiratory: - - rales b/l Cardiovascular: NL Sounds; No Murmurs; No JVD, RRR Abdominal: NL Sounds; No Tenderness; No Distention, No Hepatosplenomegaly Extremities: - - weeping edema b/l LE's with ecchymosis on lateral distal R LE Neurological: - Result Diagrams: 03/24/19 06:34 03/24/19 06:34 Microbiology and Other Data: Microbiology 03/23/19 14:30 Nasal Screen MRSA (PCR) - Final Nasal Mrsa Not Detected 03/23/19 11:10 Skin and Soft Tissue MRSA/MSSA (PCR - Final Leg Right Mrsa Negative S.aureus Positive Gram Stain - Final Assess/Plan/Problems-Billing Assessment: 78 yo M with mild dementia, RYAN (on CPAP), PAF (on Pradaxa), DM2, CKD stage 3, ICD (h/o V. tach and cardiomyopathy) presents with sepsis due to LE 's cellulitis - Patient Problems (1) Sepsis Comment: severe sepsis,with hypotension. Pt is comfort care except for antibiotics cont Cefepime/Flagyl for LE's cellultitis. Wound cx is MRSA neg (2) Atrial fibrillation Comment: h/o PAF on Pradaxa, currently in NSR unable to tkae PO meds at this time (3) Encephalopathy Comment: Acute due to sepsis, on chronic mild dementia (4) CKD (chronic kidney disease) stage 3, GFR 30-59 ml/min Comment: creat with mild worsening this hospital stay due to sepsis comfort care (5) Thrombocytopenia Comment: likely due to sepsis (6) CHF (congestive heart failure) Comment: acute on chronic with cardiomypathy and ICD, EF 55% on 03/24/19 (7) RYAN (obstructive sleep apnea) Comment: current mentation worse due to CO2 retention no BIPAP, comfort care (8) DVT prophylaxis Comment: none, comfort care Status and Disposition: inpatient
[2019-03-25] MEDS: Morphine INJ* 2 MG/ML 1 ML SYRINGE (TWO MG - NEW SYRINGE VERSION) IV PRN ×2 (14:37→16:23)
--- NOTE | 2019-03-26 01:09 | DS ---
DISCHARGE AND SUMMARY: DATE OF ADMISSION: 03/23/19 DATE OF : 03/25/19 TIME OF : 2148 hours. ATTENDING PROVIDER: Dr. Sewell * (DICTATED BY SOUMYA PRITCHARD NP) HISTORY OF PRESENT ILLNESS: Mr. Jane was a 78-year-old male with a past medical history significant for obstructive sleep apnea, wore CPAP, atrial fibrillation, history of cardiomyopathy, history of V tach, type 2 diabetes, hyperlipidemia, obesity, hypertension, history of coronary artery disease, originally presented to the hospital with altered mental status, cellulitis with severe sepsis, anasarca. During the hospitalization, the patient did have an ABG that showed respiratory acidosis. He was placed on BiPAP with no improvement, slightly worsening after 1- 1/2 hours. The patient became increasingly more lethargic and obtunded. The patient's prognosis was discussed with his stepdaughter, Erica, who requested the patient be placed on comfort care and made the patient a DNR, but wishes to continue with antibiotics. This patient has been on comfort care. The patient during the day remained with eyes closed, not opening them to command and only withdrawing to pain. The patient subsequently had a weak pulse this evening and respirations diminished. At 2148, the patient was was without pulse, no spontaneous respirations and was pronounced at 2148. The family was notified via phone requesting no autopsy to be performed. FINAL DIAGNOSES: 1. Sepsis d/t cellulitis. 2. Thrombocytopenia. 3. Chronic kidney disease. 4. Encephalopathy related to sepsis. TIME SPENT: On this discharge was approximately 30 minutes discussing events with the family and assessing the patient. SOUMYA PRITCHARD NP [id number]/[facility] #: [id number] [place]
== END 2019-03-25 21:48 | disposition expired | DRG 871 ==
LOC: ED 10:25 → ICU 14:04 → MEDTELE 03-24 19:00
PROVIDERS: ADMIT Internal Medicine; ATTEND Internal Medicine
DX: A41.9 Sepsis, unspecified organism (principal); G92 Toxic encephalopathy; E87.2 Acidosis; I42.9 Cardiomyopathy, unspecified; Z68.42 Body mass index [BMI] 45.0-49.9, adult; L97.919 Non-pressure chronic ulcer of unspecified part of right lower leg with unspecified severity; L97.829 Non-pressure chronic ulcer of other part of left lower leg with unspecified severity; L03.116 Cellulitis of left lower limb; L03.115 Cellulitis of right lower limb; I13.0 Hypertensive heart and chronic kidney disease with heart failure and stage 1 through stage 4 chronic kidney disease, or unspecified chronic kidney disease; E11.622 Type 2 diabetes mellitus with other skin ulcer; Z66 Do not resuscitate; E11.621 Type 2 diabetes mellitus with foot ulcer; L97.519 Non-pressure chronic ulcer of other part of right foot with unspecified severity; R65.20 Severe sepsis without septic shock; D69.6 Thrombocytopenia, unspecified; I48.91 Unspecified atrial fibrillation; E11.9 Type 2 diabetes mellitus without complications; E11.22 Type 2 diabetes mellitus with diabetic chronic kidney disease; I50.9 Heart failure, unspecified; G47.33 Obstructive sleep apnea (adult) (pediatric); E78.5 Hyperlipidemia, unspecified; N18.3 Chronic kidney disease, stage 3 (moderate); B95.61 Methicillin susceptible Staphylococcus aureus infection as the cause of diseases classified elsewhere; E66.9 Obesity, unspecified; R60.1 Generalized edema; N40.0 Benign prostatic hyperplasia without lower urinary tract symptoms; I25.10 Atherosclerotic heart disease of native coronary artery without angina pectoris; Z99.89 Dependence on other enabling machines and devices; Z95.810 Presence of automatic (implantable) cardiac defibrillator; I25.2 Old myocardial infarction; Z85.828 Personal history of other malignant neoplasm of skin; Z79.84 Long term (current) use of oral hypoglycemic drugs; Z79.899 Other long term (current) drug therapy; Z82.49 Family history of ischemic heart disease and other diseases of the circulatory system; Z83.3 Family history of diabetes mellitus
CPT/HCPCS: 36415; 36600; 70450; 71045; 80048; 80053; 80061; 80202; 81003; 81015; 82550; 82803; 83036; 83605; 83880; 84484; 85025; 85060; 85384; 85610; 85730; 86140; 87040; 87070; 87077; 87086; 87186; 87205; 87640; 87641; 93005; 93306; 93970; 94660; A9270-GY; C8929; J0692; J1630; J2060; J2270; J2543; J3370; J3490